=== PATIENT | female | born 1940 | race Two or more races ===

== ENCOUNTER 2022-06-16 06:30 | Day surgery (SDC) | payer OTHER ==
[~2022-06-16] VITALS: Ht 160 cm; Wt 58.5 kg
[~2022-06-16 06:30] MED LIST: GABAPENTIN300 M2 PO; HYDRODIURIL12.5 MG PO; JANUMET XR 1001 EACH PO; LIPITOR40 MG PO; METFORMIN HCL500 M3 PO; NORVASC5 MG PO; SYNTHROID75 MCG PO; TOPROL XL50 M1 PO; VASOTEC10 MG PO
[2022-06-16] MEDS ORDERED: MORGIDOX100 MG PO (11:32)
[2022-06-16] MEDS ORDERED: NAPR500T14 PO (11:32)
== END 2022-06-16 18:25 | disposition home or self-care (01) ==
LOC: CIR.AMB 06:30
PROVIDERS: ATTEND Obstetrics & Gynecology
DX: R87.612 Low grade squamous intraepithelial lesion on cytologic smear of cervix (LGSIL) (principal); N80.03 Adenomyosis of the uterus; N95.0 Postmenopausal bleeding; N84.0 Polyp of corpus uteri; D25.0 Submucous leiomyoma of uterus; I10 Essential (primary) hypertension; E11.9 Type 2 diabetes mellitus without complications; Z79.84 Long term (current) use of oral hypoglycemic drugs